=== PATIENT | female | born 1980 | race Two or more races ===

== ENCOUNTER 2018-03-05 15:02 | Emergency (ER) | payer SELFPAY ==
[~2018-03-05] VITALS: Ht 152.4 cm; Wt 79.4 kg
--- NOTE | 2018-03-05 16:09 | NUR ---
Patient discharged to home in stable conditon. Written and verbal after care instructions given. Patient verbalizes understanding of instructions.
== END 2018-03-05 16:10 | disposition home or self-care (01) ==
LOC: ER 15:09
DX: S80.02XA Contusion of left knee, initial encounter (principal); V49.9XXA Car occupant (driver) (passenger) injured in unspecified traffic accident, initial encounter; Y93.89 Activity, other specified; Y92.89 Other specified places as the place of occurrence of the external cause; Y99.8 Other external cause status
CPT/HCPCS: A4663

== ENCOUNTER 2019-06-16 17:35 | Emergency (ER) | payer SELFPAY ==
[~2019-06-16] VITALS: Ht 167.6 cm; Wt 81.6 kg
--- NOTE | 2019-06-16 19:05 | NUR ---
Dr Nguyen into eval patient.
--- NOTE | 2019-06-16 20:13 | NUR ---
Patient discharged to home in stable conditon with taking patient home. Written and verbal after care instructions given. Patient verbalizes understanding of instructions. Walked out of ER with no distress noted.
[2019-06-16 20:14] VITALS: BP 125/66
== END 2019-06-16 20:14 | disposition home or self-care (01) ==
LOC: ER 17:36
DX: J02.9 Acute pharyngitis, unspecified (principal)
CPT/HCPCS: 87400; 93005; A4663

== ENCOUNTER 2019-07-26 18:40 | Emergency (ER) | payer MEDICAID ==
[~2019-07-26] VITALS: Ht 167.6 cm; Wt 81.6 kg
--- NOTE | 2019-07-26 19:27 | NUR ---
Dr. Rodríguez at bedside for MSE.
[2019-07-26] MEDS ORDERED: IBUPROFEN 800 MG TABLET ONE (19:35)
[2019-07-26] MEDS ORDERED: IBUPROFEN 800 MG TABLET PO ONE (19:45)
--- NOTE | 2019-07-26 19:51 | NUR ---
Xray at bedside.
[2019-07-26 20:35] LABS: *URINE HCG, QUAL NEGATIVE (NEGATIVE)
--- NOTE | 2019-07-26 21:08 | NUR ---
Patient discharged to home in stable conditon. Written and verbal after care instructions given. Patient verbalizes understanding of instructions. Pt ambulated out of ER with steady gait, no acute signs of distress, VSS, all belongings taken.
[2019-07-26 21:09] VITALS: BP 120/75
== END 2019-07-26 21:09 | disposition home or self-care (01) ==
LOC: ER 18:43
DX: S93.401A Sprain of unspecified ligament of right ankle, initial encounter (principal); S93.601A Unspecified sprain of right foot, initial encounter; X58.XXXA Exposure to other specified factors, initial encounter; Y93.89 Activity, other specified; Y92.89 Other specified places as the place of occurrence of the external cause; Y99.8 Other external cause status
CPT/HCPCS: 73610; 73630; 84703; A4663

== ENCOUNTER 2019-10-31 01:13 | Emergency (ER) | payer SELFPAY ==
[~2019-10-31] VITALS: Ht 162.6 cm; Wt 68.0 kg
--- NOTE | 2019-10-31 01:54 | NUR ---
Patient left without being seen by ER physician.
== END 2019-10-31 01:56 | disposition left against medical advice (07) ==
LOC: ER 01:17
DX: Z75.3 Unavailability and inaccessibility of health-care facilities (principal)
CPT/HCPCS: A4663

== ENCOUNTER 2021-11-27 05:38 | Emergency (ER) | payer MEDICAID ==
[~2021-11-27] VITALS: Ht 165.1 cm; Wt 68.0 kg
--- NOTE | 2021-11-27 06:00 | NUR ---
pt in room 5a c/o sore throat.
--- NOTE | 2021-11-27 06:59 | NUR ---
pt was taken to cat scan.
[2021-11-27 07:01] LABS: MEAN CORPUSCULAR HEMOGLOBIN 29.1 uug (24.7-32.8); MEAN CORPUSCULAR VOLUME 82.7 fL (75.5-95.3); PLATELET COUNT (AUTO) 356 K/uL (179-408)
--- NOTE | 2021-11-27 07:08 | NUR ---
pt returned from cat scan.
[2021-11-27 07:33] LABS: CREATININE 0.7 mg/dL (0.6-1.3); POTASSIUM 3.2 mmol/L (3.5-5.1)
[2021-11-27] MEDS ORDERED: IBUPROFEN 600 MG TABLET PO ONE (07:45)
[2021-11-27] MEDS ORDERED: IBUPROFEN 600 MG TABLET ONE (07:56)
[2021-11-27 08:01] LABS: THYROID STIMULATING HORMONE 3.56 mIU/mL (0.358-3.740)
[2021-11-27 08:02] LABS: *MONOTEST POSITIVE (NEGATIVE)
--- NOTE | 2021-11-27 09:19 | NUR ---
Pt given dc instructions and confirmed understanding of aftercare. Pt told about the severity of her mass in the throat and told to follow up konstantin with [facility] for biopsy and treatment in order to prevent possible airway obstruction. Pt acknowledged teaching and stated that she will go to [facility] to follow up. VSS, PE WNL, NAD besides lump in throat. Pt denies any pain, sob, n/v, or discomfort. No s/sx of distress present.
--- NOTE | 2021-11-27 10:12 | NUR ---
Pt given copies of CT results and disk of CT films to take to [facility].
[2021-11-27 10:14] VITALS: BP 136/88
== END 2021-11-27 09:30 | disposition home or self-care (01) ==
LOC: ER 05:40
DX: E07.9 Disorder of thyroid, unspecified (principal); E04.2 Nontoxic multinodular goiter; J45.909 Unspecified asthma, uncomplicated
CPT/HCPCS: 36415; 70490; 84443; 85025; 86308; A4663